=== PATIENT | male | born 1965 | race Caucasian/White ===

== ENCOUNTER 2017-06-06 07:09 | Day surgery (SDC) | payer BC ==
[~2017-06-06] VITALS: Ht 185.4 cm; Wt 112.9 kg
[~2017-06-06 07:09] MED LIST: ASPI81CH; DULO60; FISH OIL 1,0001 EAC1; MAGOXI400 PO; OXYACE5T PO; RXONDA4ODT MM; Viagra100 MG
== END 2017-06-06 09:45 | disposition home or self-care (01) ==
LOC: ORSCSDS 07:09
PROVIDERS: Internal Medicine Gastroenterology
PROC: 0DBM8ZX Excision of Descending Colon, Via Natural or Artificial Opening Endoscopic, Diagnostic (ICD-10-PCS; principal; 2017-06-06 08:30)
PROC: 0DBN8ZX Excision of Sigmoid Colon, Via Natural or Artificial Opening Endoscopic, Diagnostic (ICD-10-PCS; principal; 2017-06-06 08:30)
PROC: 0DBL8ZX Excision of Transverse Colon, Via Natural or Artificial Opening Endoscopic, Diagnostic (ICD-10-PCS; principal; 2017-06-06 08:30)
DX: E61.1 Iron deficiency (principal); D12.4 Benign neoplasm of descending colon; K63.5 Polyp of colon; K57.30 Diverticulosis of large intestine without perforation or abscess without bleeding; I10 Essential (primary) hypertension; F41.9 Anxiety disorder, unspecified; F32.9 Major depressive disorder, single episode, unspecified; Z79.82 Long term (current) use of aspirin; Z79.899 Other long term (current) drug therapy
CPT/HCPCS: 88305; J2250; J2405; J7040; J7120

== ENCOUNTER 2018-05-01 16:18 | Emergency (ER) | payer SELFPAY ==
[~2018-05-01] VITALS: Ht 185.4 cm; Wt 113.4 kg
[2018-05-01] MEDS ORDERED: CYCL10 PO (16:43)
[2018-05-01] MEDS ORDERED: CHLO5 PO (16:44)
== END 2018-05-01 18:09 | disposition home or self-care (01) ==
LOC: ER 16:18
DX: S56.322A Laceration of extensor or abductor muscles, fascia and tendons of left thumb at forearm level, initial encounter (principal); Z23 Encounter for immunization; X58.XXXA Exposure to other specified factors, initial encounter
CPT/HCPCS: 12042; 90471; 90714; 99282-25

== ENCOUNTER → 2021-03-08 | Outpatient (CLI) | payer OTHER ==
[~2021-03-08] MED LIST changes: +CHLO5 PO; +CYCL10 PO
== END | disposition home or self-care (01) ==
LOC: LAB 11:08 → LAB SHORT 11:08
DX: I10 Essential (primary) hypertension (principal)
CPT/HCPCS: 82043

== ENCOUNTER 2024-02-04 09:22 | Emergency (ER) | payer OTHER ==
[~2024-02-04] VITALS: Ht 185.4 cm; Wt 124.7 kg
[2024-02-04] MEDS ORDERED: HYDR1TAB94 (10:09)
[2024-02-04] MEDS ORDERED: Ondansetron HCl 2 MG / ML 2ML Vial IV ONE (10:20)
[2024-02-04] MEDS ORDERED: HYDROmorphone HCl/Pf 1MG SYR IV ONE ×2 (10:20→11:45)
[2024-02-04] MEDS ORDERED: PredniSONE 20 MG Tab PO ONE (11:30)
[2024-02-04 11:35] VITALS: BP 154/108
[2024-02-04] MEDS ORDERED: PRED20 PO (11:51)
== END 2024-02-04 13:05 | disposition home or self-care (01) ==
LOC: ER 09:22
DX: M54.17 Radiculopathy, lumbosacral region (principal); I10 Essential (primary) hypertension; Z88.5 Allergy status to narcotic agent; Z88.8 Allergy status to other drugs, medicaments and biological substances; Z79.82 Long term (current) use of aspirin
CPT/HCPCS: 96374; 96375; 96376; 99283-25; J1171; J2405; J7512

== ENCOUNTER → 2025-02-03 | Outpatient (CLI) | payer OTHER ==
[~2025-02-03] MED LIST changes: +HYDR1TAB94; +PRED20 PO
[2025-02-03 19:49] LABS: BASOPHILS ABSOLUTE AUTO 0.10 K/mm3 (0.00-0.23); BASOPHILS PERCENT AUTO 1 % (0-2); EOSINOPHILS ABSOLUTE AUTO 0.19 K/mm3 (0.00-0.68); EOSINOPHILS PERCENT AUTO 2 % (0-6); Hematocrit 46.4 % (37.0-53.0); Hemoglobin 16.3 g/dL (13.5-17.5); IMMATURE GRAN ABSOLUTE AUTO 0.04 K/mm3 (0.00-0.10); IMMATURE GRAN PERCENT AUTO 1 % (0-1); LYMPHOCYTES ABSOLUTE AUTO 2.60 K/mm3 (0.84-5.20); LYMPHOCYTES PERCENT AUTO 32 % (21-46); MONOCYTES ABSOLUTE AUTO 0.78 K/mm3 (0.16-1.47); MONOCYTES PERCENT AUTO 10 % (4-13); Mean Corpuscular HGB Conc 35.1 g/dL (31.5-36.5); Mean Corpuscular Volume 94 fL (80-100); NEUTROPHILS ABSOLUTE AUTO 4.54 K/mm3 (1.96-9.15); NEUTROPHILS PERCENT AUTO 55 % (41-73); NRBC ABSOLUTE 0.00 K/mm3 (0.00-0.02); NRBC Auto 0.0 /100 WBC (0.0-0.2); Platelet Count 354 K/mm3 (150-400); RDW Coefficient Variation 12.8 % (11.7-14.2); RDW Standard Deviation 44.0 fL (35.1-46.3)
[2025-02-03 20:21] LABS: Alanine Aminotransfer (ALT/SGP 32 U/L (12-78); Albumin, Blood 3.9 g/dL (3.4-5.0); Albumin/Globulin Ratio 1.0 (0.8-1.8); Anion Gap 7 mmol/L (3-11); Aspartate Aminotrans (AST/SGOT 14 U/L (12-37); Bilirubin, Total 0.3 mg/dL (0.1-1.0); Blood Urea Nitrogen 13 mg/dL (8-24); CHOL/HDL RATIO 4.2; CO2, Blood 24 mmol/L (21-32); Calcium, Blood 10.8 mg/dL (8.5-10.1); Chloride, Blood 107 mmol/L (98-108); Cholesterol 217 mg/dL (50-200); Creatinine, Blood 0.89 mg/dL (0.60-1.20); Globulin, Blood 3.8 g/dL (2.2-4.0); Glucose, Blood 84 mg/dL (70-99); HDL Cholesterol 52 mg/dL (>39); LDL/HDL RATIO 2.5; Low Density Lipoprotein Chol 128 mg/dL (0-110); Magnesium, Blood 2.1 mg/dL (1.6-2.4); Potassium, Blood 4.1 mmol/L (3.5-5.5); Sodium, Blood 134 mmol/L (136-145); Thyroid Stimulating Hormone 2.150 uIU/mL (0.360-4.800); Total Protein, Blood 7.7 g/dL (6.4-8.2); Triglycerides 185 mg/dL (30-160); Very Low Density Lipoprot Chol 37 mg/dL (6-32)
== END ==
LOC: LAB 19:11 → LAB SHORT 19:11
PROVIDERS: Nurse Practitioner Family
DX: Z00.00 Encounter for general adult medical examination without abnormal findings (principal)
CPT/HCPCS: 80053; 80061; 83036; 83735; 83880; 84443; 85025